=== PATIENT | female | born 1970 | race Caucasian/White ===

== ENCOUNTER 2016-05-10 16:04 | Outpatient (CLI) | payer BC ==
[~2016-05-10 16:04] MED LIST: ESTRADIOL1 MG PO; MAGNESIUM400 M1 PO; MULTIPLE VITAMIN PO; NORCO1 TA1 PO; PANTOPRAZOLE SO40 MG PO; SUPER B COMPLEX MAXI PO; VITAMIN B121000 CR PO; VITAMIN C1000 MG PO; VITAMIN D-31000 UNIT PO; ZOFRAN ODT4 MG PO; [UNRECOGNIZED DRUG - OTHER] TOP
--- NOTE | 2016-05-10 16:55 | DIAGNOSTIC IMAGING REPORT ---
PROCEDURE: CT ABDOMEN/PELVIS W/O CONTRAST INDICATION: Right lower quadrant/groin pain x 2 days, initial encounter TECHNIQUE: Noncontrast axial images were obtained of the entire abdomen and pelvis with sagittal and coronal reformations. COMPARISON: CT abdomen/pelvis 10/01/2013 FINDINGS: ABDOMEN: Lung base are clear. Heart size is normal. Cholecystectomy and right nephrectomy. Liver, pancreas, spleen, adrenal glands and the left kidney are normal. Small mesenteric lymph nodes present. Nonspecific bowel gas pattern. PELVIS: Small appendicolith but appendix is normal in size without inflammatory changes. Hysterectomy and right oophorectomy. There is no pelvic mass, inflammatory changes or free fluid. There is no inguinal hernia. No suspicious osseous lesions. IMPRESSION: 1. Small appendicolith but no inflammatory changes. 2. Cholecystectomy, right nephrectomy, hysterectomy and right oophorectomy. 3. Results discussed with Dr. Edge All CT scans at this facility use dose modulation, iterative reconstruction, and/or weight-based dosing when appropriate to reduce radiation dose to as low as reasonably achievable.
== END 2016-05-10 23:00 ==
LOC: CT SRH 16:04
DX: R10.31 Right lower quadrant pain (principal); K38.9 Disease of appendix, unspecified; Z90.49 Acquired absence of other specified parts of digestive tract; Z90.710 Acquired absence of both cervix and uterus

== ENCOUNTER → 2016-07-18 | Outpatient (CLI) | payer BC ==
[~2016-07-18] MED LIST changes: +ARMOUR THYROID30 MG PO; +HYCET1 ML PO; +LEVOTHYROXINE50 MCG PO; +PROGESTERONE100 MG PO; +PROMETHAZINE PR; +[UNRECOGNIZED DRUG - OTHER]
--- NOTE | 2016-07-18 10:31 | DIAGNOSTIC IMAGING REPORT ---
PROCEDURE: US ABDOMEN ULTRASOUND-COMPLETE INDICATION: ABN LFT TECHNIQUE: Gaxiola scale and color Doppler sonographic images of the abdomen were obtained without comparison. COMPARISON: None. FINDINGS: The liver is heterogeneous and demonstrates slight increase in echogenicity. No mass or intrahepatic biliary dilatation. The gallbladder surgically absent No pericholecystic fluid or Lee sign. The extrahepatic common duct is normal measuring 6.7 mm The pancreas is not well seen The abdominal aorta is normal in its course and caliber. The retrohepatic inferior vena cava is patent. There is appropriate hepatopetal flow in the portal vein. The right kidney is surgically absent The left kidney measures 11.7 x 5.5 x 5.6 cm in length. Both kidneys demonstrate normal morphology and cortical thickness without hydronephrosis, cyst, solid mass, or shadowing calculus. Color Doppler imaging demonstrates normal blood flow in each kidney. The spleen is normal in size measuring 10.5 centimeter in length. There is no perihepatic or perisplenic ascites. IMPRESSION: 1. Fatty liver.
== END ==
LOC: US SRH 09:34
DX: K76.0 Fatty (change of) liver, not elsewhere classified (principal)

== ENCOUNTER 2016-08-03 10:19 | Inpatient (IN) | payer BC ==
[~2016-08-03] VITALS: Ht 157.5 cm; Wt 76.3 kg
[2016-08-03] VITALS (8 sets, daily range): BP systolic 105–129; BP diastolic 62–70
[~2016-08-03 10:19] MED LIST changes: -ARMOUR THYROID30 MG PO; -HYCET1 ML PO; -LEVOTHYROXINE50 MCG PO; -PROGESTERONE100 MG PO; -PROMETHAZINE PR; -[UNRECOGNIZED DRUG - OTHER]
--- NOTE | 2016-08-03 12:21 | DIAGNOSTIC IMAGING REPORT ---
PROCEDURE: CT ABD/PELVIS WITH CONTRAST CLINICAL INDICATION: ABDOMINAL PAIN TECHNIQUE: 125 ml of Isovue 300 were injected intravenously and axial images were obtained of the entire abdomen and pelvis with sagittal and coronal reformations. COMPARISON: Abdominal ultrasound 07/18/[address] abdomen/pelvis 05/10/2016. FINDINGS: ABDOMEN: Lung base are clear. Heart size is normal. Cholecystectomy and right nephrectomy. Liver, pancreas, spleen and adrenal glands are normal. Small left renal cyst. Normal abdominal aorta. Nonspecific bowel gas pattern. Left lower quadrant surgical clip. PELVIS: Thickened appendix (10 mm) with wall hyperemia and mild adjacent inflammatory changes. Hysterectomy. History of oophorectomy. Tiny gas collection in the anterior aspect of the bladder. Trace free fluid. No pelvic mass or free air. Bones are unremarkable. IMPRESSION: 1. Findings consistent with acute appendicitis. 2. Cholecystectomy, right nephrectomy, hysterectomy and history of oophorectomy 3. Results discussed with Dr. Madera All CT scans at this facility use dose modulation, iterative reconstruction, and/or weight-based dosing when appropriate to reduce radiation dose to as low as reasonably achievable.
--- NOTE | 2016-08-03 12:22 | ED ORDER SUMMARY ---
..... Patient: CARLOS CASTELLANOS OrderSheet [facility] VisitID: [id number] [address] [place] [address] 46y, F Registration Date/Time: 08/03/2016 ORDER SHEET Weight: 75.7 kg (stated) Allergies: Latex, Tetanus Toxoid GENERAL ORDERS: CBC w Diff Urgent (10:08/03/2016 SStone R.N. verbal order read back to Lise CHATTERJEE) (Ack 10:27 OSnell) (12:34 SStone R.N.) CMP Urgent (:08/03/2016 SStone R.N. verbal order read back to Lise CHATTERJEE) (Ack 10:27 OSnell) (12:34 SStone R.N.) BMP Urgent (:08/03/2016 SStone R.N. verbal order read back to Lise CHATTERJEE) (Ack 10:27 OSnell) (10:38 SStone R.N.) (Cancelled: Duplicate Order10:38 SStone R.N.) UA-Culture if indicated Urgent (:08/03/2016 SStone R.N. verbal order read back to Lise CHATTERJEE) (Ack 10:27 OSnell) (12:34 SStone R.N.) Amylase Urgent (10:37 08/03/2016 SStone R.N. per protocol) (Ack 10:37 SStone R.N.) (12:35 SStone R.N.) Lipase Urgent (10:37 08/03/2016 SStone R.N. per protocol) (Ack 10:37 SStone R.N.) (12:34 SStone R.N.) CT Abd/Pel w Cont (No) (pending) Urgent (11:18 08/03/2016 Lise CHATTERJEE) (Ack 11:21 OSnell) (12:49 LWhalen R.N.) MEDICATION ORDERS: IV FLUIDS: IV Saline Lock (10:08/03/2016 SStone R.N. verbal order read back to Lise CHATTERJEE) (Ack 10:45 SStone R.N.) IV NS : initial bolus none -, then 1000 mL/hr for X1 (NOW) (10:35 08/03/2016 SStone R.N. per protocol) (10:36 SStone R.N.) Zofran IV 4 mg (NOW) (11:17 08/03/2016 Lise CHATTERJEE) (Ack 11:23 SStone R.N.) (11:31 SStone R.N.) Dilaudid IV 0.5 mg (NOW) (11:17 08/03/2016 Lise CHATTERJEE) (Ack 11:23 SStone R.N.) (11:33 SStone R.N.) Invanz IV 1 gm/50mL (NOW) (12:21 08/03/2016 Lise CHATTERJEE) (12:49 LWhalen R.N.) IV NS with Normal Saline 1 Liter: initial bolus none -, then 150 mL/hr for 24h (NOW) (12:32 08/03/2016 SStone R.N. verbal order read back to Lise CHATTERJEE) (12:33 SStone R.N.) Dilaudid IV 0.5 mg (NOW) (13:42 08/03/2016 SStone R.N. verbal order read back to Lise CHATTERJEE) (Ack 13:42 SStone R.N.) (13:43 SStone R.N.) Zofran IV 4 mg (NOW) (13:42 08/03/2016 SStone R.N. verbal order read back to Lise CHATTERJEE) (Ack 13:42 SStone R.N.) (13:43 SStone R.N.) ORDER SHEET NOTES: [Electronically signed by Sherice Dickerson R.N. (14:43 08/03/2016)] [Electronically signed by Ash Madera MD (19:42 08/03/2016)] [Electronically locked/signed by Sherice Dickerson R.N. (14:43 08/03/2016)]
--- NOTE | 2016-08-03 12:22 | ED CLINICAL REPORT ---
Clinical Report - Physicians/Mid Levels [facility] [address] [place] [address] 08/03/2016 10:21 Patient: CARLOS CASTELLANOS Time Seen: 11:Aug 03 2016. Arrived- By private vehicle. Historian- patient. CPT: ER phys charges level 5 (#[id number]). HISTORY OF PRESENT ILLNESS Chief Complaint: ABDOMINAL PAIN. At its maximum, severity described as moderate. When seen in the E.D., severity described as moderate. Modifying factors- worsened by movement. Relieved by rest. It is described as "pain" and it is described as located in the upper abdomen. 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 The patient has had nausea and loss of appetite. No vomiting or diarrhea. Similar symptoms previously: Once, as bad. Hospitalized. Diagnosis: (Ruptured ovarian cyst with bleed.). Recent medical care: Not recently seen/assessed. REVIEW OF SYSTEMS No constipation, black stools, hematemesis or difficulty with urination or urination. No pain with urination, urinary frequency, fever or sore throat or throat. No chest pain, difficulty breathing, cough, joint pain or skin rash. No chills, back pain, weakness, diabetic symptoms or easy bruising. The patient has had mild difficulty walking (due to pain). All systems otherwise negative, except as recorded above. PAST HISTORY Cervical cancer. Cholecystectomy. . Donated a kidney. Hysterectomy. Oophorectomy. SOCIAL HISTORY Never smoker. Occasional alcohol use. No drug use. in the hospital getting cardiac stents. ADDITIONAL NOTES The nursing notes have been reviewed. PHYSICAL EXAM Vital Signs: 08/03/2016 10:26 BP: 114/76. HR: 80. RR: 18. O2 saturation: 99%. Temp: 98.2 F. Pain level now: 10. Appearance: Alert. Appears to be in pain. Patient in moderate distress. Eyes: Pupils equal, round and reactive to light. Eyes normal inspection. ENT: Ears normal. Nose normal. Pharynx normal. Neck: Normal inspection. Neck supple. CVS: Normal heart rate and rhythm. Heart sounds normal. Pulses normal. Respiratory: No respiratory distress. Breath sounds normal. Chest nontender. No rhonchi. Abdomen: Soft. Moderate tenderness in the right lower quadrant with guarding present. Abnormal bowel sounds: diminished. No mass. Back: Normal inspection. Skin: Skin warm. Normal skin color. No rash. Extremities: Extremities exhibit normal ROM. No lower extremity edema. Neuro: Oriented X 3. No motor deficit. No sensory deficit. Reflexes normal. LABS, X-RAYS, AND EKG Abdominal CT: There is evidence of appendicitis. Abdominal CT performed with IV contrast. The study was independently viewed by me, interpreted by the radiologist and discussed with the radiologist. Laboratory Tests: UA-Culture if indicated: (DELFINO: 08/03/2016 10:30) ( MsgRcvd 08/03/2016 10:48) Final results Test Result Flag Units (Reference) URINE COLOR YELLOW URINE APPEARANCE SL CLOUDY URINE GLUCOSE NEGATIVE (NEGATIVE) URINE BILIRUBIN NEGATIVE (NEGATIVE) URINE KETONE NEGATIVE (NEGATIVE) URINE SPECIFIC GRAVITY 1.015 (1.010-1.030) URINE PH 6.0 (5.0-8.0) URINE PROTEIN NEGATIVE (NEGATIVE) URINE UROBILINOGEN 0.2 EU/dL (0.2-1.0) URINE NITRITE NEGATIVE (NEGATIVE) URINE BLOOD TRACE-INTACT (NEGATIVE) URINE LEUK ESTERASE NEGATIVE (NEGATIVE) URINE RBC 1-3 rbc/hpf (0-1) URINE WBC RARE wbc/hpf (0-1) URINE EPITHELIAL CELLS 10-15 EPI/hpf (0-5) URINE BACTERIA FEW (1+) (NONE SEEN) URINE COMMENT CULT NOT INDICATED URINE CULTURES ARE SET-UP BASED ON THE FOLLOWING CRITERIA:POSITIVE NITRITEPOSITIVE LEUKOCYTE ESTERASEGREATER THAN 10 WHITE BLOOD CELLSMODERATE (2+) OR GREATER BACTERIA CBC w Diff: (DELFINO: 08/03/2016 10:32) ( MsgRcvd 08/03/2016 10:46) Final results Test Result Flag Units (Reference) WHITE BLOOD COUNT 5.9 K/uL (4.5-11.5) RED BLOOD COUNT 4.62 M/uL (4.00-5.20) HEMOGLOBIN 14.2 gm/dL (12.0-16.0) HEMATOCRIT 41.0 % (36.0-46.0) MEAN CELL VOLUME 89 fL (80-100) MEAN CORPUSCULAR HGB 31 pg (26-34) MEAN CORPUSCULAR HGB CONC 35 g/dL (31-37) RED CELL DISTRIBUTION WIDTH 12.9 % (11.6-14.8) PLATELET COUNT 198 K/uL (150-400) NEUTROPHIL % 61.7 % (50-75) LYMPH % 30.1 % (25-40) MONO % 5.7 % (3-14) EOSINOPHIL % 2.2 % (0-4) BASOPHIL % 0.3 % (0-2) CMP: (DELFINO: 08/03/2016 10:32) ( MsgRcvd 08/03/2016 11:04) Final results Test Result Flag Units (Reference) GLUCOSE 88 mg/dL (70-110) BUN 16 mg/dL (7-18) CREATININE 0.9 mg/dL (0.6-1.3) Estimated GFR >60 mL/min Estimated GFR- >60 mL/min Note: Persistent reduction over 3 months in eGFR<60 mL/min/1.73 m2 defines CKD. Patients with eGFR values>=60 mL/min/1.73 m2 may also have CKD if evidence ofpersistent proteinuria. Additional information may be foundat www.kidney.org. SODIUM 144 mmol/L (136-145) POTASSIUM 4.2 mmol/L (3.5-5.1) CHLORIDE 108 H mmol/L (98-107) CARBON DIOXIDE 29 mmol/L (21-32) CALCIUM 8.9 mg/dL (8.5-10.1) TOTAL PROTEIN 7.7 g/dL (6.4-8.2) ALBUMIN 3.8 g/dL (3.3-5.0) BILIRUBIN, TOTAL 0.5 mg/dL (0.0-1.0) ALKALINE PHOSPHATASE 138 H U/L (46-116) AST (SGOT) 14 L U/L (15-37) ALT (SGPT) 37 U/L (12-78) LIPASE 91 U/L (73-393) AMYLASE 41 U/L (25-115) . PROGRESS AND PROCEDURES Course of Care: IV NS 1 liter then 150 per hour. Dilaudid 0.5 mg IV Zofran 4 mg IV Invanz 1g IV. Patient/family counseled. Old medical records ordered. Disposition orders written. Disposition: Admitted to Acute Care. CLINICAL IMPRESSION Acute appendicitis with localized peritonitis. (Electronically signed by Ash Madera MD 08/03/2016 19:42)
--- NOTE | 2016-08-03 12:22 | ED NURSING NOTES ---
Clinical Report - Nurses [facility] [address] [place] [address] 08/03/2016 10:21 Patient: CARLOS CASTELLANOS TRIAGE Triage time 10:26. Acuity: LEVEL 3. Chief Complaint: ABDOMINAL PAIN and NAUSEA. --10:30 Sherice Dickerson R.N. 10:26 08/03/16. BP: 114/76. HR: 80. RR: 18. O2 saturation: 99%. Temp: 98.2 F. Pain level now: 09/02. --10:30 Sherice Dickerson R.N. Weight: 75.7 kg stated. Height/Length: 62 inches Per Patient. BMI: 30.6. --10:30 Sherice Dickerson R.N. Medications ? estrogen. Vitamins/Minerals Oral. --10:28 Sherice Dickerson R.N. Allergies Latex. Tetanus Toxoid. --10:28 Sherice Dickerson R.N. History Arrived by private vehicle. Historian: patient. Onset. (3 days ago). ( upper mid abdomen, constant, 5/10 pain). She has had nausea. Last oral intake by patient was (20 hours ago). 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 SOCIAL HX: Never smoker. Occasional alcohol use. No infectious disease exposure. --10:30 Sherice Dickerson R.N. PROBLEMS: None . --10:29 Sherice Dickerson R.N. ADDITIONAL SURGERIES: Cervical cancer. Cholecystectomy. . Donated a kidney. Hysterectomy. Oophorectomy. --10:29 Sherice Dickerson R.N. Interventions ID band on patient. --10:30 Sherice Dickerson R.N. PHYSICAL ASSESSMENT GENERAL / NEURO / PSYCH: Alert. Oriented X 4. Appears in no acute distress. RESPIRATORY: Respirations not labored. CVS: Normal sinus rhythm noted. GI / : The patient has had nausea. Abdominal distention with tenderness to palpation. Abdominal tenderness. SKIN: Skin is warm and dry. --10:32 Sherice Dickerson R.N. Ambulatory to room. --10:32 Sherice Dickerson R.N. NURSING PROGRESS NOTES The plan of care for this patient includes an assessment with efforts to address the presence of pain. Patient gowned. Head of bed elevated. Reassurance given. Call light placed in reach. Bed placed in lowest position. --10:31 Sherice Dickerson R.N. 10:31 08/03/2016 Site #1 started via IV in the left antecubital space with an 20g angiocath; one attempt. Blood drawn: rainbow set. Labeled in the presence of the patient and sent to the lab. Saline lock flushed with 10 mL saline. --10:31 Sherice Dickerson R.N. 10:36 08/03/2016 Started bag #1 1000 mL IV Fluids IV NS (Saline); at 1000 mL/hr over 1 hour(s) via site #1 --10:36 Sherice Dickerson R.N. 10:30. Patient ID band checked for patient name: patient confirmed. Instructions provided to collect clean catch urine and patient verbalized understanding. Clean catch urine collected with return of yellow-colored clear urine; odor is normal; sample sent to lab for urinalysis and culture. Specimen labeled in the presence of the patient. --11:11 Fany Herbert 11:30 08/03/2016 Zofran (Ondansetron HCl) IVP 4 mg given over 2 minute(s) via site #1. Allergies verified and confirmed 5 rights. IV patency established. IV site checked: no pain, redness, or swelling. IV flushed thoroughly pre- and post-medication administration. --11:31 Sherice Dickerson R.N. 11:32 08/03/2016 Dilaudid (HYDROmorphone HCl PF) IVP 0.5 mg given over 2 minute(s) via site #1. Allergies verified, confirmed 5 rights and sedative warning given to the patient. IV patency established. IV site checked: no pain, redness, or swelling. IV flushed thoroughly pre- and post-medication administration. --11:33 Sherice Dickerson R.N. Call light placed in reach. ( sedative warning given to pt. regarding driving while on narcotic pain medication. She states her is coming to pick her up. Out to CT at this time.). --11:34 Sherice Dickerson R.N. ( Attempted to waste dilaudid 0.5mg with another nurse, but unable to sign waste in [employer]. Pharmacist notified.). --11:36 Sheriff Delgadillo R.N. 12:33 08/03/2016 Started bag #1 150 mL IV Fluids IV NS (Saline); at 150 mL/hr over 6 hour(s) via site #1 --12:33 Sherice Dickerson R.N. 12:41 08/03/2016 Invanz IVP 1 gm given over 30 minute(s) via site #1. IV patency established. IV site checked: no pain, redness, or swelling. IV flushed thoroughly pre- and post-medication administration. --13:42 Sherice Dickerson R.N. <<STRICKEN ENTRY-- 12:49 08/03/2016 Invanz IVP 1 gm given over 0.5 hour(s) via site #1. Allergies verified and confirmed 5 rights. IV patency established. IV site checked: no pain, redness, or swelling. IV flushed thoroughly pre- and post-medication administration. --12:49 Benjamin Harman R.N. --END STRIKE>> Other. Primary RN charted --14:31 Benjamin Harman R.N. late entry - 12:[address] resting quietly call light in reach. --13:04 Sherice Dickerson R.N. 13:04 08/03/16. BP: 137/71. --13:05 Sherice Dickerson R.N. late entry - 12:45- Pt. had taken blood pressure cuff and sat monitor off previously so none have been recorded. --13:06 Sherice Dickerson R.N. ( attempt to call report to the floor. RN will call back.). --13:34 Sherice Dickerson R.N. 13:40 08/03/16. BP: 133/78. HR: 83. RR: 18. O2 saturation: 100%. Temp: 97.9 F. Pain level now: 10. --13:41 Sherice Dickerson R.N. ( Pt. aware of NPO status.). --13:41 Sherice Dickerson R.N. 13:43 08/03/2016 Dilaudid (HYDROmorphone HCl PF) IVP 0.5 mg given over 2 minute(s) via site #1. --13:43 Sherice Dickerson R.N. 13:43 08/03/2016 Zofran (Ondansetron HCl) IVP 4 mg given over 2 minute(s) via site #1. IV patency established. IV site checked: no pain, redness, or swelling. IV flushed thoroughly pre- and post-medication administration. --13:43 Sherice Dickerson R.N. ( second attempt to call report made. Overview sent again.). --14:00 Sherice Dickerson R.N. DISPOSITION / DISCHARGE 14:28 08/03/16. BP: 125/51. HR: 86. RR: 18. O2 saturation: 98%. Temp: 98.6 F. Pain level now 0/10. --14:29 Benjamin Harman R.N. Departure time: 14:Aug 03 2016. Admitted. ( Report given to Arminda CONCEPCION patient transported.). --14:29 Benjamin Harman R.N. 12:30 08/03/2016 IV Fluids IV NS Discontinued: bag #1 infused. Total amount infused: 1000 mL. IV patency established. IV site checked: no pain, redness, or swelling. IV flushed thoroughly. --14:30 Benjamin Harman R.N. 14:29 08/03/2016 Site #[address] upon admission; patent. Good blood return present. --14:29 Benjamin Harman R.N. 14:30 08/03/2016 IV Fluids IV NS Continued: upon admission at the rate of 125 mL/hr. 900 mL remaining bag #2. IV patency established. IV site checked: no pain, redness, or swelling. IV flushed thoroughly. --14:30 Benjamin Harman R.N. Locked/Released at 08/03/2016 14:43 by Sherice Dickerson R.N.
--- NOTE | 2016-08-03 12:22 | ED ORDER SUMMARY ---
..... Patient: CARLOS CASTELLANOS OrderSheet [facility] VisitID: [id number] [address] [place] [address] 46y, F Registration Date/Time: 08/03/2016 ORDER SHEET Weight: 75.7 kg (stated) Allergies: Latex, Tetanus Toxoid GENERAL ORDERS: CBC w Diff Urgent (10:08/03/2016 SStone R.N. verbal order read back to Lise CHATTERJEE) (Ack 10:27 OSnell) (12:34 SStone R.N.) CMP Urgent (:08/03/2016 SStone R.N. verbal order read back to Lise CHATTERJEE) (Ack 10:27 OSnell) (12:34 SStone R.N.) BMP Urgent (:08/03/2016 SStone R.N. verbal order read back to Lise CHATTERJEE) (Ack 10:27 OSnell) (10:38 SStone R.N.) (Cancelled: Duplicate Order10:38 SStone R.N.) UA-Culture if indicated Urgent (:08/03/2016 SStone R.N. verbal order read back to Lise CHATTERJEE) (Ack 10:27 OSnell) (12:34 SStone R.N.) Amylase Urgent (10:37 08/03/2016 SStone R.N. per protocol) (Ack 10:37 SStone R.N.) (12:35 SStone R.N.) Lipase Urgent (10:37 08/03/2016 SStone R.N. per protocol) (Ack 10:37 SStone R.N.) (12:34 SStone R.N.) CT Abd/Pel w Cont (No) (pending) Urgent (11:18 08/03/2016 Lise CHATTERJEE) (Ack 11:21 OSnell) (12:49 LWhalen R.N.) MEDICATION ORDERS: IV FLUIDS: IV Saline Lock (10:08/03/2016 SStone R.N. verbal order read back to Lise CHATTERJEE) (Ack 10:45 SStone R.N.) IV NS : initial bolus none -, then 1000 mL/hr for X1 (NOW) (10:35 08/03/2016 SStone R.N. per protocol) (10:36 SStone R.N.) Zofran IV 4 mg (NOW) (11:17 08/03/2016 Lise CHATTERJEE) (Ack 11:23 SStone R.N.) (11:31 SStone R.N.) Dilaudid IV 0.5 mg (NOW) (11:17 08/03/2016 Lise CHATTERJEE) (Ack 11:23 SStone R.N.) (11:33 SStone R.N.) Invanz IV 1 gm/50mL (NOW) (12:21 08/03/2016 Lise CHATTERJEE) (12:49 LWhalen R.N.) IV NS with Normal Saline 1 Liter: initial bolus none -, then 150 mL/hr for 24h (NOW) (12:32 08/03/2016 SStone R.N. verbal order read back to Lise CHATTERJEE) (12:33 SStone R.N.) Dilaudid IV 0.5 mg (NOW) (13:42 08/03/2016 SStone R.N. verbal order read back to Lise CHATTERJEE) (Ack 13:42 SStone R.N.) (13:43 SStone R.N.) Zofran IV 4 mg (NOW) (13:42 08/03/2016 SStone R.N. verbal order read back to Lise CHATTERJEE) (Ack 13:42 SStone R.N.) (13:43 SStone R.N.) ORDER SHEET NOTES: [Electronically signed by Sherice Dickerson R.N. (14:43 08/03/2016)] [Electronically signed by Ash Madera MD (19:42 08/03/2016)] [Electronically locked/signed by Sherice Dickerson R.N. (14:43 08/03/2016)]
--- NOTE | 2016-08-03 12:22 | ED CLINICAL REPORT ---
Clinical Report - Physicians/Mid Levels [facility] [address] [place] [address] 08/03/2016 10:21 Patient: CARLOS CASTELLANOS Time Seen: 11:Aug 03 2016. Arrived- By private vehicle. Historian- patient. CPT: ER phys charges level 5 (#130174). HISTORY OF PRESENT ILLNESS Chief Complaint: ABDOMINAL PAIN. At its maximum, severity described as moderate. When seen in the E.D., severity described as moderate. Modifying factors- worsened by movement. Relieved by rest. It is described as "pain" and it is described as located in the upper abdomen. This started about 3 days [employer] [facility] and is still present. The patient has had nausea and loss of appetite. No vomiting or diarrhea. Similar symptoms previously: Once, as bad. Hospitalized. Diagnosis: (Ruptured ovarian cyst with bleed.). Recent medical care: Not recently seen/assessed. REVIEW OF SYSTEMS No constipation, black stools, hematemesis or difficulty with urination or urination. No pain with urination, urinary frequency, fever or sore throat or throat. No chest pain, difficulty breathing, cough, joint pain or skin rash. No chills, back pain, weakness, diabetic symptoms or easy bruising. The patient has had mild difficulty walking (due to pain). All systems otherwise negative, except as recorded above. PAST HISTORY Cervical cancer. Cholecystectomy. . Donated a kidney. Hysterectomy. Oophorectomy. SOCIAL HISTORY Never smoker. Occasional alcohol use. No drug use. in the hospital getting cardiac stents. ADDITIONAL NOTES The nursing notes have been reviewed. PHYSICAL EXAM Vital Signs: 08/03/2016 10:26 BP: 114/76. HR: 80. RR: 18. O2 saturation: 99%. Temp: 98.2 F. Pain level now: 10. Appearance: Alert. Appears to be in pain. Patient in moderate distress. Eyes: Pupils equal, round and reactive to light. Eyes normal inspection. ENT: Ears normal. Nose normal. Pharynx normal. Neck: Normal inspection. Neck supple. CVS: Normal heart rate and rhythm. Heart sounds normal. Pulses normal. Respiratory: No respiratory distress. Breath sounds normal. Chest nontender. No rhonchi. Abdomen: Soft. Moderate tenderness in the right lower quadrant with guarding present. Abnormal bowel sounds: diminished. No mass. Back: Normal inspection. Skin: Skin warm. Normal skin color. No rash. Extremities: Extremities exhibit normal ROM. No lower extremity edema. Neuro: Oriented X 3. No motor deficit. No sensory deficit. Reflexes normal. LABS, X-RAYS, AND EKG Abdominal CT: There is evidence of appendicitis. Abdominal CT performed with IV contrast. The study was independently viewed by me, interpreted by the radiologist and discussed with the radiologist. Laboratory Tests: UA-Culture if indicated: (DELFINO: 08/03/2016 10:30) ( MsgRcvd 08/03/2016 10:48) Final results Test Result Flag Units (Reference) URINE COLOR YELLOW URINE APPEARANCE SL CLOUDY URINE GLUCOSE NEGATIVE (NEGATIVE) URINE BILIRUBIN NEGATIVE (NEGATIVE) URINE KETONE NEGATIVE (NEGATIVE) URINE SPECIFIC GRAVITY 1.015 (1.010-1.030) URINE PH 6.0 (5.0-8.0) URINE PROTEIN NEGATIVE (NEGATIVE) URINE UROBILINOGEN 0.2 EU/dL (0.2-1.0) URINE NITRITE NEGATIVE (NEGATIVE) URINE BLOOD TRACE-INTACT (NEGATIVE) URINE LEUK ESTERASE NEGATIVE (NEGATIVE) URINE RBC 1-3 rbc/hpf (0-1) URINE WBC RARE wbc/hpf (0-1) URINE EPITHELIAL CELLS 10-15 EPI/hpf (0-5) URINE BACTERIA FEW (1+) (NONE SEEN) URINE COMMENT CULT NOT INDICATED URINE CULTURES ARE SET-UP BASED ON THE FOLLOWING CRITERIA:POSITIVE NITRITEPOSITIVE LEUKOCYTE ESTERASEGREATER THAN 10 WHITE BLOOD CELLSMODERATE (2+) OR GREATER BACTERIA CBC w Diff: (DELFINO: 08/03/2016 10:32) ( MsgRcvd 08/03/2016 10:46) Final results Test Result Flag Units (Reference) WHITE BLOOD COUNT 5.9 K/uL (4.5-11.5) RED BLOOD COUNT 4.62 M/uL (4.00-5.20) HEMOGLOBIN 14.2 gm/dL (12.0-16.0) HEMATOCRIT 41.0 % (36.0-46.0) MEAN CELL VOLUME 89 fL (80-100) MEAN CORPUSCULAR HGB 31 pg (26-34) MEAN CORPUSCULAR HGB CONC 35 g/dL (31-37) RED CELL DISTRIBUTION WIDTH 12.9 % (11.6-14.8) PLATELET COUNT 198 K/uL (150-400) NEUTROPHIL % 61.7 % (50-75) LYMPH % 30.1 % (25-40) MONO % 5.7 % (3-14) EOSINOPHIL % 2.2 % (0-4) BASOPHIL % 0.3 % (0-2) CMP: (DELFINO: 08/03/2016 10:32) ( MsgRcvd 08/03/2016 11:04) Final results Test Result Flag Units (Reference) GLUCOSE 88 mg/dL (70-110) BUN 16 mg/dL (7-18) CREATININE 0.9 mg/dL (0.6-1.3) Estimated GFR >60 mL/min Estimated GFR- >60 mL/min Note: Persistent reduction over 3 months in eGFR<60 mL/min/1.73 m2 defines CKD. Patients with eGFR values>=60 mL/min/1.73 m2 may also have CKD if evidence ofpersistent proteinuria. Additional information may be foundat www.kidney.org. SODIUM 144 mmol/L (136-145) POTASSIUM 4.2 mmol/L (3.5-5.1) CHLORIDE 108 H mmol/L (98-107) CARBON DIOXIDE 29 mmol/L (21-32) CALCIUM 8.9 mg/dL (8.5-10.1) TOTAL PROTEIN 7.7 g/dL (6.4-8.2) ALBUMIN 3.8 g/dL (3.3-5.0) BILIRUBIN, TOTAL 0.5 mg/dL (0.0-1.0) ALKALINE PHOSPHATASE 138 H U/L (46-116) AST (SGOT) 14 L U/L (15-37) ALT (SGPT) 37 U/L (12-78) LIPASE 91 U/L (73-393) AMYLASE 41 U/L (25-115) . PROGRESS AND PROCEDURES Course of Care: IV NS 1 liter then 150 per hour. Dilaudid 0.5 mg IV Zofran 4 mg IV Invanz 1g IV. Patient/family counseled. Old medical records ordered. Disposition orders written. Disposition: Admitted to Acute Care. CLINICAL IMPRESSION Acute appendicitis with localized peritonitis. (Electronically signed by Ash Madera MD 08/03/2016 19:42)
[2016-08-03] MEDS ORDERED: PROGESTERONE100 MG PO (14:43)
[2016-08-03] MEDS ORDERED: LEVOTHYROXINE50 MCG PO (14:44)
[2016-08-03] MEDS ORDERED: ARMOUR THYROID30 MG PO (14:45)
[2016-08-03] MEDS ORDERED: [UNRECOGNIZED DRUG - OTHER] (14:46)
--- NOTE | 2016-08-03 15:11 | History & Physical Report ---
Admission Admit Date 08/03/16 Information Source Information Source: Self Reliability: Good History Chief Complaint Right lower quadrant abdominal pain History of Present Illness A 46-year-old female who began experiencing vague periumbilical abdominal discomfort approximately 2 days ago. The pain is now localized in the right lower quadrant and very tense. She describes this as being steady. Her chest wall cough and around. The patient denies vomiting or diarrhea but admits to a queasy stomach and feeling clammy. ALLERGIES: Latex and tetanus. PAST MEDICAL/SURGICAL HISTORY: Status post tonsillectomy and adenoidectomy Status post Status post hysterectomy Status post bilateral salpingo-oophorectomy Status post right nephrectomydonor kidney Status post laparoscopic cholecystectomy Status post bilateral carpal, release. Patient History 1. Acute appendicitis Social History . One son and one daughter. Does not smoke. Really drinks a fall. Drains one cup of coffee per day. Does not use recreational drugs. Occupation self-employed [employer] company FAMILY HISTORY: Mother age 76 history of hypertension. Father age 71 congestive heart failure. He survived for 14 years after the renal transplant from his daughter. 3 half-brothers 5 sisters alive and well. Medications and Allergies Medications Current Medications Sig/Moises Start time Last Medication Dose Route Stop Time Status Admin Famotidine/Sodium 50 ML Q12HR 08/03 2100 AC Chloride IV Metoclopramide HCl 10 MG Q6HR 08/03 1800 AC IV Lactated Ringer's 1,000 ML ASDIRECTED 08/03 1500 AC IV Meperidine HCl 12.5 MG Q30MIN PRN 08/03 1500 AC IV Ondansetron HCl 4 MG Q6H PRN 08/03 1500 AC IV Allergies Coded Allergies: Latex (Severe, ITCHY 08/03/16) Tetanus Toxoids (Severe, SWELLING 08/03/16) Review of Systems Other AB 0. Menarche age 11. First full-term age 21. Last menstrual period 1999. Last Pap smear one year ago. Last mammogram one year ago. Patient has never had a colonoscopy. Patient denies history of hepatitis, jaundice, rheumatic fever, heart murmurs requiring antibiotics when she goes to the dentist, bleeding tendencies, or blood transfusions. Remaining 12 point review of systems negative Physical Exam Vital Signs / I&Os Vital Signs Date Time Temp Pulse Resp B/P Pulse O2 O2 Flow FiO2 Ox Delivery Rate 08/03 1444 97.7 73 18 129/70 99 Room Air 0.0 General Appearance Alert, Oriented X3, Cooperative, Mild distress HEENT Normal exam, Atraumatic, PERRLA, EOMI, Moist mucous membranes Lungs Clear to auscultation Neck Supple, No JVD, No masses, No thyromegaly, No lymphadenopathy Cardiovascular Regular rate and rhythm Abdomen Normal bowel sounds, nondistended. Positive peritoneal signs Extremities No clubbing, No edema Skin warm and dry. No peripheral cyanosis. Neurological No lateralizing signs Psych/Mental Status Mood normal LAB Results Laboratory Tests 08/03 08/03 08/03 1030 1032 1037 Chemistry Plasma Sodium (136 - 145 mmol/L) 144 Plasma Potassium (3.5 - 5.1 mmol/L) 4.2 Plasma Chloride (98 - 107 mmol/L) 108 CO2 (Enzymatic) (21 - 32 mmol/L) 29 BUN (7 - 18 mg/dL) 16 Creatinine (0.6 - 1.3 mg/dL) 0.9 Est GFR ( Amer) (mL/min) >60 Est GFR (Non-Af Amer) (mL/min) >60 Glucose (70 - 110 mg/dL) 88 Plasma Calcium (8.5 - 10.1 mg/dL) 8.9 Total Bilirubin (0.0 - 1.0 mg/dL) 0.5 AST (15 - 37 U/L) 14 ALT (12 - 78 U/L) 37 Alkaline Phosphatase (46 - 116 U/L) 138 Total Protein (6.4 - 8.2 g/dL) 7.7 Albumin (3.3 - 5.0 g/dL) 3.8 Amylase (25 - 115 U/L) 41 Cancelled Lipase (73 - 393 U/L) 91 Cancelled Hematology WBC (4.5 - 11.5 K/uL) 5.9 RBC (4.00 - 5.20 M/uL) 4.62 Hgb (12.0 - 16.0 gm/dL) 14.2 Hct (36.0 - 46.0 %) 41.0 MCV (80 - 100 fL) 89 MCH (26 - 34 pg) 31 RDW (11.6 - 14.8 %) 12.9 Neut % (Auto) (50 - 75 %) 61.7 Lymph % (Auto) (25 - 40 %) 30.1 Garden % (Auto) (3 - 14 %) 5.7 Eos % (Auto) (0 - 4 %) 2.2 Baso % (Auto) (0 - 2 %) 0.3 Plt Count, EDTA (150 - 400 K/uL) 198 PUBS MCHC (31 - 37 g/dL) 35 Urines Urine Color YELLOW Urine Appearance SL CLOUDY Urine pH (5.0 - 8.0) 6.0 Ur Specific [place] (1.010 - 1.030) 1.015 Urine Protein (NEGATIVE) NEGATIVE Urine Ketones (NEGATIVE) NEGATIVE Urine Blood (NEGATIVE) TRACE-INTACT Urine Nitrite (NEGATIVE) NEGATIVE Urine Bilirubin (NEGATIVE) NEGATIVE Urine Urobilinogen (0.2 - 1.0 EU/dL) 0.2 Ur Leukocyte Esterase (NEGATIVE) NEGATIVE Urine RBC (0 - 1 rbc/hpf) 1-3 Urine WBC (0 - 1 wbc/hpf) RARE Ur Epithelial Cells (0 - 5 EPI/hpf) 10-15 Urine Bacteria (NONE SEEN) FEW (1+) Urine Glucose (NEGATIVE) NEGATIVE Urine Comment CULT NOT INDICATED Imaging CT interpreted by radiologist is consistent with acute appendicitis Assessment and Plan Problem List 1. Acute appendicitis Plan Acute appendicitis. Recommend laparoscopic appendectomy and the procedure then explained to the patient and her who is in attendance. Risks to include but not exclusive of trocar site infection/hernia, damage to local structures, postoperative intra-abdominal abscess. Patient understands and agrees to proceed. We will schedule her for urgent laparoscopic appendectomy
--- NOTE | 2016-08-03 17:10 | Operative Report ---
Operative Report Date of Surgery: 08/03/16 Preoperate Diagnosis: acute appendicitis Postoperative Diagnosis: acute appendicitis Surgeon: Wilfredo Rojas MD [facility] Surgeon: none Procedure Performed: Laparoscopic appendectomy Anesthesia: Gen. endotracheal Indications: 46-year-old female 2 day history of progressive right lower quadrant abdominal pain. CT interpreted by radiology as evidence of acute appendicitis. FINDINGS: Thickened and hyperemic appendix. Consistent with appendicitis Surgical Technique: Patient brought to the operating room. Placed in the dorsal supine position. Patient underwent general endotracheal anesthesia by the anesthesiology department. After proper anesthesia had taken effect patient's abdomen was prepped using Betadine and draped in a sterile fashion. An infraumbilical incision made clear down to skin and subcutaneous tissue and varies needle was inserted through this site into the abdominal cavity. After ascertaining its appropriate position with suction irrigation and pneumoperitoneum obtained using CO2 insufflation trocar suture 14 15 mmHg pressure. Once this pressure was reached varies needle was removed and replaced the 10 mm trocar. The trocar removed after which which a laparoscopic video camera was introduced into the abdominal cavity. Under direct visualization a 5 mm trocar was placed in the suprapubic region. A separate 5 mm trocar was placed in the left lower quadrant. Each entered the abdominal cavity under direct visualization. The trochars removed , leaving the sleeves behind. Instrumentation was introduced into the abdominal cavity. The aforementioned findings noted, the appendix was identified and the meso- appendix was taken down using the ThunderBeat. The base of the appendix was clipped using the hemo-lock. The appendix was then transected between the hemo-lock using the Endo Domenica. The appendix was placed in a sterile specimen container bag and retrieved from the abdominal cavity and sent to pathology. The appendiceal stump was cauterized using the ThunderBeat. The abdominal cavity right lower quadrant and pelvis was irrigated with warm normal saline antibiotic solution. The irrigant suctioned out. Hemostasis achieved. The pneumoperitoneum released. All trochars removed from the abdominal cavity. All trochar sites were approximated using 4-0 subdermal Polysorb suture. Steri-Strips were placed over the wound. Sterile occlusive dressings were placed over each surgical site. Patient was extubated and transferred to recovery room in stable condition. There were no intraoperative complications. CONDITION: Stable to postoperative anesthesia recovery room COMPLICATIONS: None ESTIMATED BLOOD LOSS: None FLUIDS: 400 cc lactate Ringers DRAINS: Urine output 125 cc SPECIMEN: Appendix
--- NOTE | 2016-08-03 19:42 | ED MED RECONCILIATION SUMMARY ---
Patient: CARLOS CASTELLANOS Medication Reconciliation Report [facility] VisitID: [id number] [address] [place] [address] 46y, F Registration Date/Time: 08/03/2016 Weight: 75.7 kg Height/Length: 62 in. BMI: 30.6 ALLERGIES: Latex, Tetanus Toxoid The patient's Home Medications are listed below: THE FOLLOWING MEDICATIONS NEED TO BE RECONCILED: ? estrogen Vitamins/Minerals Oral The source(s) of the original Home Medication information: Not obtained. The following Medications were given to the patient in the Emergency Department: IV NS IV Fluids bolus 0, then 1000 mL/hr, administered: 08/03/2016 10:36:00 AM Zofran [IVP] IVP 4 mg, administered: 08/03/2016 11:30:00 AM Dilaudid [IVP] IVP 0.5 mg, administered: 08/03/2016 11:32:00 AM IV NS IV Fluids bolus 0, then 150 mL/hr, administered: 08/03/2016 12:33:00 PM Invanz [IVP] IVP 1 gm, administered: 08/03/2016 12:41:00 PM Dilaudid [IVP] IVP 0.5 mg, administered: 08/03/2016 1:43:00 PM Zofran [IVP] IVP 4 mg, administered: 08/03/2016 1:43:00 PM The following Medications were prescribed to the patient: None.
--- NOTE | 2016-08-03 19:42 | ED MED RECONCILIATION SUMMARY ---
Patient: CARLOS CASTELLANOS Medication Reconciliation Report [facility] VisitID: [id number] [address] [place] [address] 46y, F Registration Date/Time: 08/03/2016 Weight: 75.7 kg Height/Length: 62 in. BMI: 30.6 ALLERGIES: Latex, Tetanus Toxoid The patient's Home Medications are listed below: THE FOLLOWING MEDICATIONS NEED TO BE RECONCILED: ? estrogen Vitamins/Minerals Oral The source(s) of the original Home Medication information: Not obtained. The following Medications were given to the patient in the Emergency Department: IV NS IV Fluids bolus 0, then 1000 mL/hr, administered: 08/03/2016 10:36:00 AM Zofran [IVP] IVP 4 mg, administered: 08/03/2016 11:30:00 AM Dilaudid [IVP] IVP 0.5 mg, administered: 08/03/2016 11:32:00 AM IV NS IV Fluids bolus 0, then 150 mL/hr, administered: 08/03/2016 12:33:00 PM Invanz [IVP] IVP 1 gm, administered: 08/03/2016 12:41:00 PM Dilaudid [IVP] IVP 0.5 mg, administered: 08/03/2016 1:43:00 PM Zofran [IVP] IVP 4 mg, administered: 08/03/2016 1:43:00 PM The following Medications were prescribed to the patient: None.
--- NOTE | 2016-08-03 19:42 | ED DISCHARGE INSTRUCTIONS ---
Patient: CARLOS CASTELLANOS General Instructions [facility] VisitID: [id number] [address] [place] [address] 46y, F Registration Date/Time: 08/03/2016 Acute appendicitis with localized peritonitis. (Electronically signed by Ash Madera MD 08/03/2016 19:42)
--- NOTE | 2016-08-03 19:42 | ED MAR SUMMARY ---
..... Medication Administration Record [facility] [address] [place] [address] Patient: CARLOS CASTELLANOS Visit ID: [id number] 46y, F Weight: 75.7 kg Height/Length: 62 in BMI: 30.6 ALLERGIES: Latex, Tetanus Toxoid Start 10:36 08/03/2016 Sherice Dickerson R.N., Stop 12:30 08/03/2016 Benjamin Harman R.N. Medication Administered: IV NS (SALINE), Dose: IV Fluids over 1 hour(s), Rate: 1000 mL/hr, Dispensed: 1000 mL bag, Site: #1 left AC. Medication Ordered: IV NS : initial bolus none -, then 1000 mL/hr for X1 (NOW). Given 11:30 08/03/2016 Sherice Dickerson R.N. Medication Administered: ZOFRAN [IVP] (ONDANSETRON HCL), Dose: 4 mg IVP over 2 minute(s), Site: #1 left AC. Medication Ordered: Zofran IV 4 mg (NOW). Given 11:32 08/03/2016 Sherice Dickerson R.N. Medication Administered: DILAUDID [IVP] (HYDROMORPHONE HCL PF), Dose: 0.5 mg IVP over 2 minute(s), Site: #1 left AC. Medication Ordered: Dilaudid IV 0.5 mg (NOW). Start 12:33 08/03/2016 Sherice Dickerson R.N., Continued Upon Admission 14:30 08/03/2016 Benjamin Harman R.N. Medication Administered: IV NS (SALINE), Dose: IV Fluids over 6 hour(s), Rate: 150 mL/hr, Dispensed: 150 mL bag, Site: #1 left AC. Medication Ordered: IV NS with Normal Saline 1 Liter: initial bolus none -, then 150 mL/hr for 24h (NOW). Given 12:41 08/03/2016 Sherice Dickerson R.N. Medication Administered: INVANZ [IVP], Dose: 1 gm IVP over 30 minute(s), Site: #1 left AC. Medication Ordered: Invanz IV 1 gm/50mL (NOW). Given 13:43 08/03/2016 Sherice Dickerson R.N. Medication Administered: DILAUDID [IVP] (HYDROMORPHONE HCL PF), Dose: 0.5 mg IVP over 2 minute(s), Site: #1 left AC. Medication Ordered: Dilaudid IV 0.5 mg (NOW). Given :08/03/2016 Sherice Dickerson R.N. Medication Administered: ZOFRAN [IVP] (ONDANSETRON HCL), Dose: 4 mg IVP over 2 minute(s), Site: #1 left AC. Medication Ordered: Zofran IV 4 mg (NOW).
--- NOTE | 2016-08-03 19:42 | ED MAR SUMMARY ---
..... Medication Administration Record [facility] [address] [place] [address] Patient: CARLOS CASTELLANOS Visit ID: [id number] 46y, F Weight: 75.7 kg Height/Length: 62 in BMI: 30.6 ALLERGIES: Latex, Tetanus Toxoid Start 10:36 08/03/2016 Sherice Dickerson R.N., Stop 12:30 08/03/2016 Benjamin Harman R.N. Medication Administered: IV NS (SALINE), Dose: IV Fluids over 1 hour(s), Rate: 1000 mL/hr, Dispensed: 1000 mL bag, Site: #1 left AC. Medication Ordered: IV NS : initial bolus none -, then 1000 mL/hr for X1 (NOW). Given 11:30 08/03/2016 Sherice Dickerson R.N. Medication Administered: ZOFRAN [IVP] (ONDANSETRON HCL), Dose: 4 mg IVP over 2 minute(s), Site: #1 left AC. Medication Ordered: Zofran IV 4 mg (NOW). Given 11:32 08/03/2016 Sherice Dickerson R.N. Medication Administered: DILAUDID [IVP] (HYDROMORPHONE HCL PF), Dose: 0.5 mg IVP over 2 minute(s), Site: #1 left AC. Medication Ordered: Dilaudid IV 0.5 mg (NOW). Start 12:33 08/03/2016 Sherice Dickerson R.N., Continued Upon Admission 14:30 08/03/2016 Benjamin Harman R.N. Medication Administered: IV NS (SALINE), Dose: IV Fluids over 6 hour(s), Rate: 150 mL/hr, Dispensed: 150 mL bag, Site: #1 left AC. Medication Ordered: IV NS with Normal Saline 1 Liter: initial bolus none -, then 150 mL/hr for 24h (NOW). Given 12:41 08/03/2016 Sherice Dickerson R.N. Medication Administered: INVANZ [IVP], Dose: 1 gm IVP over 30 minute(s), Site: #1 left AC. Medication Ordered: Invanz IV 1 gm/50mL (NOW). Given 13:43 08/03/2016 Sherice Dickerson R.N. Medication Administered: DILAUDID [IVP] (HYDROMORPHONE HCL PF), Dose: 0.5 mg IVP over 2 minute(s), Site: #1 left AC. Medication Ordered: Dilaudid IV 0.5 mg (NOW). Given :08/03/2016 Sherice Dickerson R.N. Medication Administered: ZOFRAN [IVP] (ONDANSETRON HCL), Dose: 4 mg IVP over 2 minute(s), Site: #1 left AC. Medication Ordered: Zofran IV 4 mg (NOW).
--- NOTE | 2016-08-03 19:42 | ED DISCHARGE INSTRUCTIONS ---
Patient: CARLOS CASTELLANOS General Instructions [facility] VisitID: [id number] [address] [place] [address] 46y, F Registration Date/Time: 08/03/2016 Acute appendicitis with localized peritonitis. (Electronically signed by Ash Madera MD 08/03/2016 19:42)
[2016-08-04 01:54] VITALS: BP 115/66
--- NOTE | 2016-08-04 06:17 | Progress Note ---
Subjective General Ambulatory. Abdominal discomfort much improved over admission. Tolerating by mouth. No shortness of breath or chest pain. Physical Exam Vital Signs / I&Os Vital Signs Date Time Temp Pulse Resp B/P Pulse O2 O2 Flow FiO2 Ox Delivery Rate 08/04 0154 97.7 61 16 115/66 95 Room Air 08/03 2300 97.9 64 16 108/66 96 Room Air 08/03 1444 97.7 73 18 129/70 99 Room Air 0.0 I&O 08/03 0800 08/03 1600 08/04 0000 Intake Total 0 1600 Output Total 0 2050 Balance 0 -450 General Appearance Alert, Oriented X3, Cooperative, No acute distress Lungs Clear to auscultation Cardiovascular Regular rate and rhythm Abdomen Normal bowel sounds, trocar site dressings dry and intact Assessment and Plan Problem List 1. Acute appendicitis Plan Stable postop. We'll discharge home today. Stay on clear liquids for 24 hours. Wound care instructions given. Follow-up with [facility] in 1 week. Pain medication prescription given. Antinausea medication prescription given as well.
[2016-08-04] MEDS ORDERED: HYCET1 ML PO (06:21)
[2016-08-04] MEDS ORDERED: PROMETHAZINE PR (06:22)
--- NOTE | 2016-08-04 06:23 | Provider's Discharge Care Plan ---
Problem, Goal, Plan Problem List 1. Status post laparoscopic appendectomy Goals: Improve disease control, Therapeutic intervention Instructions: Follow up as directed, Take meds as directed
--- NOTE | 2016-08-04 06:23 | Provider's Discharge Care Plan ---
Problem, Goal, Plan Problem List 1. Status post laparoscopic appendectomy Goals: Improve disease control, Therapeutic intervention Instructions: Follow up as directed, Take meds as directed
[2016-08-04 07:00] VITALS: BP 122/69
== END 2016-08-04 10:15 | disposition home or self-care (01) | DRG 340 ==
LOC: ED SRH 10:19 → TRANS SRH 12:37 → ACUTE2 SRH 14:39
PROVIDERS: Specialist; ADMIT Emergency Medicine
PROC: 0DTJ4ZZ Resection of Appendix, Percutaneous Endoscopic Approach (ICD-10-PCS; principal; 2016-08-03 16:15)
DX: K35.3 Acute appendicitis with localized peritonitis (principal); Z90.5 Acquired absence of kidney
CPT/HCPCS: 50002; 60001; 70002; 80102; 80212; 80248; 82669; 82794; 82897; 83338; 83343; 83587; 83920; 83982; 84038; 90004; 90100; 90131; 90309; 90470; 92235; 92530; 95059

== ENCOUNTER 2016-08-30 08:02 | Outpatient (CLI) | payer BC ==
[~2016-08-30 08:02] MED LIST changes: +ARMOUR THYROID30 MG PO; +HYCET1 ML PO; +LEVOTHYROXINE50 MCG PO; +PROGESTERONE100 MG PO; +PROMETHAZINE PR; +[UNRECOGNIZED DRUG - OTHER]
--- NOTE | 2016-08-30 10:41 | DIAGNOSTIC IMAGING REPORT ---
PROCEDURE: MG BILATERAL SCREENING W/CAD INDICATION: Screening, personal history of cervical cancer TECHNIQUE: Standard CC and MLO views bilaterally. Computer aided detection was used. COMPARISON: 08/05/2015, 08/03/2014, 08/01/2013 FINDINGS: Moderately dense fibroglandular tissue is present bilaterally. No developing densities, areas of architectural distortion, or suspicious microcalcifications. IMPRESSION: 1. Stable mammograms without radiographic evidence of malignancy. RESULT CODE: 1- Negative. A. A negative report should not delay biopsy if a dominant or clinically suspicious mass is present. 10-15% of cancers are not identified by x-ray. B. A negative report may reinforce clinical impression. C. Adenosis and dense breasts may obscure an underlying neoplasm. D. False positive reports average 6-10%. E.. A yearly screening mammogram is recommended. A reminder letter will be scheduled.
== END 2016-08-30 23:00 ==
LOC: MAM SRH 08:02
DX: Z12.31 Encounter for screening mammogram for malignant neoplasm of breast (principal)

== ENCOUNTER 2016-09-14 07:53 | Outpatient (CLI) | payer BC ==
--- NOTE | 2016-09-14 11:09 | DIAGNOSTIC IMAGING REPORT ---
PROCEDURE: US ABDOMEN ULTRASOUND-COMPLETE INDICATION: S/P LAP APPY, SHARP ABDOMINAL PAIN TECHNIQUE: [place]iola scale and color Doppler sonographic images of the abdomen were obtained without comparison. COMPARISON: 07/18/[address] 08/03/2016 FINDINGS: The liver is normal in size, and contour with a minimally hyperechoic, heterogeneous echotexture. Gallbladder is surgically absent. No fluid collection in the gallbladder fossa. Common duct is normal caliber at 6.2 mm. No intrahepatic biliary dilatation or mass. The visualized pancreas is normal without ductal dilatation or peripancreatic fluid collection. The tail was not well seen. The abdominal aorta is normal in its course and caliber. The retrohepatic inferior vena cava is patent. There is appropriate hepatopetal flow in the portal vein. The right kidney is surgically absent. The left kidney measures 11.6 cm in length. Normal left renal morphology and vascularity. The spleen is normal in size measuring 11.2 cm in length. There is no perihepatic or perisplenic ascites. Area of right lower quadrant pain assessed. No evidence of suspicious fluid collection or dominant mass. No abnormality in the subcutaneous tissues. IMPRESSION: 1. No visible fluid collection or subcutaneous abnormality in the right lower quadrant. 2. Surgically absent gallbladder and right kidney. 3. Mild hepatic steatosis.
== END 2016-09-14 23:00 | disposition home or self-care (01) ==
LOC: US SRH 07:53
DX: R10.9 Unspecified abdominal pain (principal); K76.0 Fatty (change of) liver, not elsewhere classified; Z90.49 Acquired absence of other specified parts of digestive tract; Z90.5 Acquired absence of kidney